=== PATIENT | male | born 1950 | race Caucasian/White ===

== ENCOUNTER 2025-04-10 11:46 | Outpatient (CLI) | payer MEDICARE, SELFPAY ==
--- NOTE | ~2025-04-10 | XR_ITS ---
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 Findings: No acute fracture or malalignment. Severe Achilles enthesopathy. Soft tissues unremarkable. Impression: No acute fracture or malalignment. Reviewed, dictated and finalized at location P. ER AUTOMATIC Impression: No acute fracture or malalignment.
--- NOTE | ~2025-04-10 | XR_ITS ---
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 Findings: No acute fracture or malalignment. Moderate degenerative changes of the distal interphalangeal joints most marked first digit. Soft tissues unremarkable. Impression: No acute fracture or malalignment. Reviewed, dictated and finalized at location P. H TESTER Impression: No acute fracture or malalignment.
== END 2025-04-10 11:47 | disposition home or self-care (01) ==
PROVIDERS: PCP Family Medicine
DX: M19.071 Primary osteoarthritis, right ankle and foot (principal); M19.049 Primary osteoarthritis, unspecified hand
CPT/HCPCS: 73130; 73630